=== PATIENT | male | born 1990 | race Caucasian/White ===

== ENCOUNTER 2016-09-29 21:19 | Emergency (ER) | payer OTHER | END 2016-09-29 21:45 | disposition home or self-care (01) | LOC: ER 21:19 | DX: T81.31XA Disruption of external operation (surgical) wound, not elsewhere classified, initial encounter (principal); K21.9 Gastro-esophageal reflux disease without esophagitis; Z87.891 Personal history of nicotine dependence ==

== ENCOUNTER 2016-10-02 22:02 | Emergency (ER) | payer OTHER | END 2016-10-02 23:06 | disposition home or self-care (01) | LOC: ER 22:02 | DX: T81.31XA Disruption of external operation (surgical) wound, not elsewhere classified, initial encounter (principal); K21.9 Gastro-esophageal reflux disease without esophagitis; Z87.891 Personal history of nicotine dependence; Z88.2 Allergy status to sulfonamides ==